=== PATIENT | female | born 1940 | race Caucasian/White ===

== ENCOUNTER 2024-07-30 17:17 | Observation (INO) | payer MEDICARE ==
[~2024-07-30] VITALS: Ht 160 cm; Wt 80.3 kg
[2024-07-30 18:13] VITALS: BP 122/50
[2024-07-30] MEDS ORDERED: Glucagon Hydrochloride 1 MG SYR IV ONE (18:40)
[2024-07-30 18:55] LABS: BASO % 0.2 % (0.0-1.0); EOS # 0.1 10*3/uL (0.0-0.4); EOS % 0.6 % (1.0-4.0); HEMATOCRIT 33.4 % (37.0-47.0); MEAN CELL VOLUME 103.1 fl (81.0-99.0); MEAN CORPUSCULAR HGB 32.4 pg (27.0-31.0); MEAN PLATELET VOLUME 9.7 fl (9.6-12.3); MONO # 0.5 10*3/uL (0.1-1.0); MONO % 4.6 % (3.0-9.0); NEUT # 8.2 10*3/uL (2.3-7.9); NEUT % 76.4 % (47.0-73.0); PLATELET COUNT AUTOMATED 235 10*3/uL (130-400); RED BLOOD COUNT 3.24 10*6/uL (4.10-5.10); RED CELL DISTRI WIDTH 16.3 % (0-14.5); WHITE BLOOD COUNT 10.8 10*3/uL (4.8-10.8)
[2024-07-30 18:57] LABS: MEAN CORPUSCULAR HGB CONC 31.4 g/dl (33.0-37.0)
[2024-07-30 19:15] LABS: POTASSIUM 4.9 mmol/L (3.4-5.1)
[2024-07-30] MEDS ORDERED: Ondansetron Hydrochloride 4 MG/2 ML VIAL IV PRN (19:25)
[2024-07-30] MEDS ORDERED: MORPHINE Sulfate 2 MG/ML SYR IV PRN (19:25)
[2024-07-30] MEDS ORDERED: SODIUM CHLORIDE 0.9% 1,000 ML IV ONE (19:30)
[2024-07-30] MEDS ORDERED: PROBIOTIC250 MG PO (19:43)
[2024-07-30] MEDS ORDERED: ALLOPURINOL300 MG PO (19:43)
[2024-07-30] MEDS ORDERED: BENAZEPRIL40 MG PO (19:43)
[2024-07-30] MEDS ORDERED: FAMOTIDINE20 M1 PO (19:44)
[2024-07-30] MEDS ORDERED: METFORMIN HYD1000 MG PO (19:44)
[2024-07-30] MEDS ORDERED: SIMVASTATIN80 MG PO (19:44)
[2024-07-30 22:00] VITALS: BP 118/48
[2024-07-31 03:40] VITALS: BP 126/80; BP 136/80
[2024-07-31 04:22] LABS: BASO % 0.1 % (0.0-1.0); HEMATOCRIT 31.4 % (37.0-47.0); MEAN CELL VOLUME 102.6 fl (81.0-99.0); MEAN CORPUSCULAR HGB CONC 32.2 g/dl (33.0-37.0); MEAN PLATELET VOLUME 10.5 fl (9.6-12.3); MONO # 1.2 10*3/uL (0.1-1.0); MONO % 7.1 % (3.0-9.0); NEUT # 13.4 10*3/uL (2.3-7.9); NEUT % 80.7 % (47.0-73.0); PLATELET COUNT AUTOMATED 229 10*3/uL (130-400); RED BLOOD COUNT 3.06 10*6/uL (4.10-5.10); RED CELL DISTRI WIDTH 16.3 % (0-14.5); WHITE BLOOD COUNT 16.7 10*3/uL (4.8-10.8)
[2024-07-31 04:52] LABS: FREE T4 1.21 ng/dl (0.89-1.76); POTASSIUM 4.6 mmol/L (3.4-5.1)
[2024-07-31] MEDS ORDERED: Pantoprazole Sodium 40 MG VIAL IV SCH (06:00)
[2024-07-31 07:48] LABS: VITAMIN D, 25-HYDROXY 42.1 ng/mL (30-100)
[2024-07-31 09:39] VITALS: BP 113/66
== END 2024-07-31 10:14 | disposition home or self-care (01) ==
LOC: ED 17:17 → EDHOLD 18:59
PROVIDERS: Emergency Medicine; Student in an Organized Health Care Education/Training Program; ADMIT Internal Medicine; ATTEND Internal Medicine
DX: T18.128A Food in esophagus causing other injury, initial encounter (principal); R00.0 Tachycardia, unspecified; D53.9 Nutritional anemia, unspecified; D50.9 Iron deficiency anemia, unspecified; E87.8 Other disorders of electrolyte and fluid balance, not elsewhere classified; R73.9 Hyperglycemia, unspecified; I10 Essential (primary) hypertension; E78.00 Pure hypercholesterolemia, unspecified; K21.9 Gastro-esophageal reflux disease without esophagitis; M10.9 Gout, unspecified; I12.9 Hypertensive chronic kidney disease with stage 1 through stage 4 chronic kidney disease, or unspecified chronic kidney disease; N18.31 Chronic kidney disease, stage 3a; Z79.899 Other long term (current) drug therapy; Y92.89 Other specified places as the place of occurrence of the external cause